=== PATIENT | male | born 2000 | race African-American/Black ===

== ENCOUNTER 2021-02-28 12:33 | Emergency (ER) | payer OTHER, SELFPAY ==
--- NOTE | ~2021-02-28 | CT_ITS ---
EXAMINATION: CT abdomen pelvis wo con EXAM DATE: 02/28/2021 15:51 INDICATION: Dysuria, hematuria, low abd pain. TECHNIQUE: Spiral CT of the abdomen and pelvis was performed without contrast. Axial, coronal and sag ittal images were reviewed. The dose-length product (DLP) for this examination was 186.07 mGy-cm. T he exposure was tailored according to patient size (auto mA exposure control), and iterative reconstr uction (ASIR) was used as additional dose reduction technique. There is no prior study for compariso n. FINDINGS: There is no nephrolithiasis or hydronephrosis. The prostate is unremarkable. The bladder is unremarkable. The liver, spleen, adrenal glands and pancreas are unremarkable. Gallbladder is u nremarkable. No biliary obstruction. There is no retroperitoneal or pelvic lymphadenopathy. No pr ior There are no findings to suggest appendicitis. The stomach and small bowel are unremarkable. There is expected amount of colonic stool. No free intraperitoneal gas. The heart is normal in size. T here are no pericardial or pleural effusions. The lung bases are unremarkable. There are no osteobl astic or osteolytic lesions identified. IMPRESSION: 1. No nephrolithiasis, hydronephrosis or acute intra-abdominal findings. Reviewed, dictated and finalized at location A.
[2021-02-28 12:59] VITALS: BP 135/59; PULSE 56; RESP 14; TEMP 36.7; O2SAT 99
[2021-02-28 13:29] LABS: Add Urine Microscopic? YES; Appearance Urine Clear (Clear); Bilirubin Urine Negative (Negative); Blood Urine 2+ (Negative); Color Urine Yellow (Yellow); Glucose Urine UA Negative (Negative); Ketones Urine Negative (Negative); Leukocyte Esterase Ur Negative LEU/UL (Negative); Mucus Urine Rare /lpf; Nitrate Urine Negative (Negative); Protein Urine 1+ mg/dL (Negative); RBC Urine 21-50 /hpf (0-2); WBC Urine 0-3 /hpf
[2021-02-28 13:30] LABS: Specific Grav Ur 1.031 (1.001-1.035)
--- NOTE | 2021-02-28 15:38 | ED.MALEGU ---
HPI - Male Genitourinary General Chief complaint: Fever <Sheyla Sexton PA-C - Last Filed: 02/28/21 16:57> Stated complaint: fever <Sheyla Sexton PA-C - Last Filed: 02/28/21 16:57> Time Seen by Provider: 02/28/21 15:06 <Sheyla Sexton PA-C - Last Filed: 02/28/21 16:57> Source: patient <Sheyla Setxon PA-C - Last Filed: 02/28/21 16:57> Mode of arrival: ambulatory <Sheyla Sexton PA-C - Last Filed: 02/28/21 16:57> Limitations: no limitations <Sheyla Sexton PA-C - Last Filed: 02/28/21 16:57> History of Present Illness HPI Narrative: This is a 20 year old male that presents to the ER for dysuria over the last couple of days. Associated with subjective fever and a mild headache. Reports he is not concerned for STDs. Denies vomiting, or hematuria. <Sheyla Sexton PA-C - Last Filed: 02/28/21 16:57> Related Data Allergies/Adverse reactions: Allergies Allergy/AdvReac Type Severity Reaction Status Date / Time No Known Allergies Allergy Verified 02/28/21 14:58 <Sheyla Sexton PA-C - Last Filed: 02/28/21 16:57> Review of Systems Review of Systems: CONSTITUTIONAL: Reports subjective fever GASTROINTESTINAL: Denies abdominal pain, nausea, vomiting GENITOURINARY: Reports dysuria. Denies hematuria. SKIN: Denies rash <Sheyla Sexton PA-C - Last Filed: 02/28/21 16:57> All systems reviewed & are unremarkable except as noted in HPI and below <Sheyla Sexton PA-C - Last Filed: 02/28/21 16:57> [facility] Past Medical History Medical History: Medical History (Updated 02/28/21 @ 16:49 by Sheyla Sexton PA-C) No active medical problems <Sheyla Sexton PA-C - Last Filed: 02/28/21 16:57> Social History Social History: Social History (Updated 02/28/21 @ 15:41 by Sheyla Sexton PA-C) Substance use: never <Sheyla Sexton PA-C - Last Filed: 02/28/21 16:57> Exam Narrative: GENERAL: Well-appearing, well-nourished, and in no acute distress. HEAD: Normocephalic, atraumatic. EYES: EOMI. CHEST: Clear to auscultation. No respiratory distress. No wheezes rales or rhonchi HEART: Regular rate and rhythm. No murmur heard. Normal peripheral pulses. ABDOMEN: Soft, nontender, nondistended, normal active bowel sounds. EXTREMITIES: Normal range of motion. No edema. SKIN: Warm, dry, no rash. NEURO: No focal deficits. Alert and oriented x3. PSYCH: Normal mood and affect <Sheyla Sexton PA-C - Last Filed: 02/28/21 16:57> Course Vital Signs Vital signs: Vital Signs Temperature 98.1 F 02/28/21 12:59 Pulse Rate 56 L 02/28/21 12:59 Respiratory Rate 14 02/28/21 12:59 Blood Pressure 135/59 L 02/28/21 12:59 Pulse Oximetry 99 02/28/21 12:59 Temperature 98.1 F 02/28/21 12:59 Pulse Rate 56 L 02/28/21 12:59 Respiratory Rate 14 02/28/21 12:59 Blood Pressure 135/59 L 02/28/21 12:59 Pulse Oximetry 99 02/28/21 12:59 <Sheyla Sexton PA-C - Last Filed: 02/28/21 16:57> MDM - Male Genitourinary MDM Narrative Medical decision making narrative: Patient presents to the emergency department for dysuria and hematuria. He is afebrile and nontoxic-appearing. Vitals are stable. CBC and metabolic panel without concerning findings. UA with 21-50 red blood cells. Chlamydia, gonorrhea and trichomonas were sent. CT scan of the abdomen and pelvis without acute findings. Patient was updated on case findings. Would like to presumptively be treated for STDs. He is stable and felt appropriate for further outpatient valuation. Instructed to follow-up with primary care doctor. He was given warnings to return to the ER <Sheyla Sexton PA-C - Last Filed: 02/28/21 16:57> Lab Data Attestation: I reviewed the patient's lab results. <Sheyla Sexton PA-C - Last Filed: 02/28/21 16:57> Result diagrams: : 02/28/21 16:07 02/28/21 16:07 <Sheyla Sexton PA-C - Last Filed: 02/28/21 16:57> Labs:
--- NOTE | 2021-02-28 15:48 | PC.NURSE ---
Pt ambulatory to CT.
[2021-02-28 16:26] LABS: Basophils Absolute Auto 0.1 K/mm3 (0.0-0.1); Eosinophils Absolute Auto 0.3 K/mm3 (0-0.3); Eosinophils Percent Auto 4.4 % (0-4.4); Hematocrit 46.6 % (42.0-52.0); Hemoglobin 15.7 g/dL (14.0-18.0); Immature Granulocyte Absolute 0.02 K/mm3 (0.00-0.031); Immature Granulocyte Percent A 0.3 % (0-0.5); Lymphocytes Absolute Auto 2.07 K/mm3 (0.9-3.2); Lymphocytes Percent Auto 28.6 % (18.3-44.2); Mean Corpuscular HGB Conc 33.7 g/dl (32-36); Mean Corpuscular Hemoglobin 30.7 pg (26-34); Monocytes Absolute Auto 0.6 K/mm3 (0.1-0.6); Monocytes Percent Auto 8.6 % (2.6-8.5); Neutrophils Absolute Auto 4.1 K/mm3 (1.3-6.7); Neutrophils Percent Auto 57.1 % (45.5-73.1); Platelet Count Result 306 k/mm3 (150-375); Red Blood Count 5.12 M/mm3 (4.6-6.20); Red Cell Distribution Width 12.5 % (11.5-14.5); White Blood Count 7.2 K/mm3 (4.5-10.0)
[2021-02-28 16:42] LABS: Alanine Aminotransferase 17 U/L (4-50); Alkaline Phosphatase 49 U/L (38-126); Anion Gap 8 mmol/L (8-16); Aspartate Amino Transferase 28 U/L (17-59); Bilirubin,Total 0.6 mg/dL (0.2-1.3); Blood Urea Nitrogen 18 mg/dL (9-20); Calcium 9.5 mg/dL (8.4-10.2); Carbon Dioxide 30 mmol/L (22-30); Chloride 102 mmol/L (98-107); Estimated CRCL calculation 110 ml/min; Estimated Glomerular Filt Rate > 60; Glucose 102 mg/dL (65-110); Lipase 91 U/L (23-300); Potassium 3.7 mmol/L (3.4-5.0); Sodium 140 mmol/L (137-145)
[2021-02-28] MEDS: cefTRIAXone 1 GM VIAL 0.5 GM IM (16:59)
[2021-02-28] MEDS: LIDOCAINE HCL 1% LOCAL INJ 20 ML VIAL (17:01)
[2021-02-28 17:14] VITALS: BP 124/83; PULSE 68; RESP 15; O2SAT 98
== END 2021-02-28 17:16 | disposition home or self-care (01) ==
PROVIDERS: Emergency Medicine; Physician Assistant; Emergency Provider General Practice
DX: R30.0 Dysuria (principal); R31.9 Hematuria, unspecified; Z03.89 Encounter for observation for other suspected diseases and conditions ruled out
CPT/HCPCS: 36415; 74176; 80053; 81001; 83605; 83690; 85025; 87491; 87591; 87661; 96372; 99284; J0696